=== PATIENT | male | born 1955 | race Asian ===

== ENCOUNTER 2019-05-23 19:27 | Emergency (ER) | payer OTHER ==
[~2019-05-23] VITALS: Ht 185.4 cm; Wt 90.7 kg
[2019-05-23 19:55] LABS: PLATELET COUNT 331 K/uL (142-355)
[2019-05-23 20:05] LABS: POTASSIUM 4.6 mmol/L (3.6-5.2)
[2019-05-23 20:35] VITALS: BP 138/79; TEMP 98.4
[2019-05-23] MEDS ORDERED: TYLENOL325 MG PO (23:14)
[2019-05-23] MEDS ORDERED: AMLODIPINE BESYLATE PO (23:25)
[2019-05-23] MEDS ORDERED: FURO40TA93 PO (23:28)
[2019-05-23] MEDS ORDERED: HALOPERIDOL2 MG PO (23:37)
[2019-05-23] MEDS ORDERED: METO-837 PO (23:41)
[2019-05-23] MEDS ORDERED: QUETIAPINE200 MG PO (23:45)
[2019-05-23] MEDS ORDERED: DIVALPROEX500 M1 PO (23:50)
== END 2019-05-23 20:35 | disposition other institution (70) ==
LOC: ED 19:27
PROVIDERS: Emergency Medicine
DX: F28 Other psychotic disorder not due to a substance or known physiological condition (principal); F20.89 Other schizophrenia; F03.91 Unspecified dementia, unspecified severity, with behavioral disturbance; R00.0 Tachycardia, unspecified; Z04.6 Encounter for general psychiatric examination, requested by authority
CPT/HCPCS: 36415; 80053; 85027; 93005; 99285

== ENCOUNTER 2019-06-26 12:18 | Emergency (ER) | payer OTHER ==
[~2019-06-26] VITALS: Ht 185.4 cm; Wt 110.2 kg
[~2019-06-26 12:18] MED LIST: AMLODIPINE BESYLATE PO; CHOL100034 PO; DIVALPROEX500 M1 PO; ESCI10TA PO; FURO40TA93 PO; HALO5TAB10 PO; HALOPERIDOL2 MG PO; METO-837 PO; OXCARBAZEPIN300 MG PO; QUET100T2 PO; QUETIAPINE200 MG PO; TYLENOL325 MG PO; ZIPR20CA PO
[2019-06-26 12:44] LABS: PLATELET COUNT 324 K/uL (142-355)
[2019-06-26 13:40] VITALS: BP 158/65; TEMP 98
[2019-06-26] MEDS ORDERED: FURO40TA93 PO (14:54)
[2019-06-26] MEDS ORDERED: METOPROLOL25 M1 PO (14:56)
== END 2019-06-26 13:40 | disposition other institution (70) ==
LOC: ED 12:18
PROVIDERS: Family Medicine
DX: Z00.8 Encounter for other general examination (principal); R46.89 Other symptoms and signs involving appearance and behavior; I10 Essential (primary) hypertension
CPT/HCPCS: 80053; 81000; 85027; 93005; 99283; 99285

== ENCOUNTER 2020-07-01 20:02 | Emergency (ER) | payer OTHER ==
[~2020-07-01] VITALS: Ht 185.4 cm; Wt 81.6 kg
[~2020-07-01 20:02] MED LIST changes: +DIVA250T2 PO; +DIVA500T2 PO; +FLUV100T PO; +HALO50IN4 IM; +MAGNSUS68 PO; +METOPROLOL25 M1 PO; +ZIPR80CA PO
[2020-07-01 21:25] LABS: PLATELET COUNT 311 K/uL (142-355)
[2020-07-01 21:30] LABS: POTASSIUM 3.4 mmol/L (3.6-5.2)
[2020-07-01 23:23] VITALS: BP 118/78; TEMP 98.4
[2020-07-02] MEDS ORDERED: PANTOPRAZOLE 40MG TA PO (04:37)
[2020-07-02] MEDS ORDERED: POTASSIUM CHLO20 ME1 PO (04:58)
[2020-07-02] MEDS ORDERED: SCOP1.5D TD (05:01)
[2020-07-02] MEDS ORDERED: DOCU100C10 PO (05:04)
[2020-07-02] MEDS ORDERED: MEDR10TA4 PO (05:05)
[2020-07-02] MEDS ORDERED: BENZ1TAB43 PO (05:07)
[2020-07-02] MEDS ORDERED: SERT100T PO (05:09)
[2020-07-02] MEDS ORDERED: TEMA15CA19 PO (05:10)
[2020-07-02] MEDS ORDERED: FURO20TA67 PO (05:16)
[2020-07-02] MEDS ORDERED: LORA1TAB17 PO (05:17)
[2020-07-02] MEDS ORDERED: CHLORPROMAZINE100 MG PO (05:20)
[2020-07-02] MEDS ORDERED: MELATONIN10 M1 PO (05:37)
[2020-07-02] MEDS ORDERED: DIVA125C PO (05:38)
[2020-07-02] MEDS ORDERED: METO-837 PO (05:38)
[2020-07-02] MEDS ORDERED: NUEDEXTA PO (09:17)
[2020-07-02] MEDS ORDERED: DIVALPROEX125 MG PO (10:28)
== END 2020-07-01 23:23 | disposition still patient (30) ==
LOC: ED 21:00
PROVIDERS: Emergency Medicine Emergency Medical Services
DX: F20.89 Other schizophrenia (principal); F03.91 Unspecified dementia, unspecified severity, with behavioral disturbance; Z11.59 Encounter for screening for other viral diseases; Z04.6 Encounter for general psychiatric examination, requested by authority
CPT/HCPCS: 80053; 85027; 87635; 93005; 99283; U0003